=== PATIENT | male | born 1945 | race Caucasian/White ===

== ENCOUNTER 2017-06-21 11:51 | Emergency (ER) | payer OTHER ==
[2017-06-21 11:57] VITALS: BP 191/111; PULSE 57; RESP 16; TEMP 98.6; O2SAT 95
--- NOTE | 2017-06-21 12:22 | EDPHY ---
H & P Stated Complaint: laceration on right palm, fell last night Time Seen by Provider: 06/21/17 11:59 HPI/ROS: Chief Complaint: Hand laceration HPI: 71-year-old male tripped and fell while taking the garbage out at 7 o' clock yesterday evening. He sustained several lacerations on his hand. He presented to his primary care physician's office this morning who sent him down for evaluation. He was also noted that the patient has been off his blood pressure medications and his blood pressure was somewhat elevated in the 170s the PCP office. He denies any fevers or chills. No redness. No other injuries other than the injuries to the palm of his right hand. Last tetanus was less than 5 years ago. ROS: 10 point Review of Systems is negative except as noted in the HPI. PMH: Hypertension Social History: No smoking, no alcohol, no recreational drug use Family History: non-contributory Physical Exam: Gen: Awake, Alert, No Distress HEENT: Nose: no rhinorrhea Eyes: PERRLA, EOMI Mouth: Moist mucosa Neck: Supple, no JVD Ext: Right hand there are several open abrasions/lacerations. There appears to be some gross contamination. There is no tendon involvement. He has full flexion extension strength of all flexors and extensors of his right hand. Sensations in the later radial, median, and ulnar nerve distribution. Capillary refills less than 2 sec. No bony tenderness or deformities. Skin: no rash Neuro: CN II-XII intact, Sensation grossly intact, Strength 5/5 in bilateral upper and lower extremities - Personal History Current Tetanus Diphtheria and Acellular Pertussis (TDAP): Yes Tetanus Vaccine Date: 2012 - Medical/Surgical History Hx Asthma: Yes Hx Chronic Respiratory Disease: No Hx Diabetes: No Hx Cardiac Disease: No Hx Renal Disease: No Hx Cirrhosis: No Hx Alcoholism: No Hx HIV/AIDS: No Hx Splenectomy or Spleen Trauma: No Other PMH: HTN, prostate surgeries, - Social History Smoking Status: Never smoked Constitutional: Initial Vital Signs Temperature (C) 37 C 06/21/17 11:53 Heart Rate 57 L 06/21/17 11:53 Respiratory Rate 16 06/21/17 11:53 Blood Pressure 191/111 H 06/21/17 11:53 O2 Sat (%) 95 06/21/17 11:53 O2 Delivery Mode Room Air Allergies/Adverse Reactions: No Known Allergies Allergy (Unverified 06/21/17 11:57) Home Medications: Medication Instructions Recorded Aspirin 81mg (*) 06/21/17 Lisinopril 06/21/17 Medical Decision Making ED Course/Re-evaluation: Patient's lacerations have been cleaned and irrigated. Given the age they are not suturable at this time. There is no T tendon or deep structures involved. There is no signs of infection. Patient is up-to-date in his tetanus. He is hypertensive here and I have advised him to Re start his lisinopril. He states he was office cause he thought it was giving him digestive issues. I pointed out that controlling his blood pressure is probably more of a priority and he can follow up with his primary care physician for any changes as necessary. Return for signs of infection. Departure - Departure Disposition: Home, Routine, Self-Care Clinical Impression: Laceration, Hypertension Condition: Good Instructions: Laceration Without Closure (ED) Additional Instructions: Return to the emergency department for increasing redness, discharge from the wounds, fevers, chills, or any other concerns. Please resume taking your usual dose of lisinopril. Follow up with primary care physician for blood pressure check in about a week. Referrals: Devyn Lauren MD [Primary Care Provider] - As per Instructions
== END 2017-06-21 12:33 | disposition home or self-care (01) ==
LOC: CED 11:51
DX: S61.411A Laceration without foreign body of right hand, initial encounter (principal); I10 Essential (primary) hypertension; Z79.82 Long term (current) use of aspirin; W01.0XXA Fall on same level from slipping, tripping and stumbling without subsequent striking against object, initial encounter